=== PATIENT | female | born 1985 | race Asian ===

== ENCOUNTER 2023-08-15 14:05 | Emergency (ER) | payer MEDICAID, OTHER ==
[~2023-08-15] VITALS: Ht 154.9 cm; Wt 67.3 kg
[2023-08-15 15:25] VITALS: BP 128/77; PULSE 114; RESP 18; TEMP 98.8; O2SAT 96
[2023-08-15 17:09] LABS: COVID19 ANTIGEN SOFIA FIA NEGATIVE (NEGATIVE); Rapid Influenza A Negative (Negative)
[2023-08-15 17:12] LABS: Rapid Influenza B Positive (Negative)
[2023-08-15] MEDS ORDERED: OSEL75CA5 PO (17:20)
[2023-08-15] MEDS ORDERED: BENZ100C97 PO (17:20)
== END 2023-08-15 17:36 | disposition home or self-care (01) ==
LOC: ER 14:05
DX: J10.1 Influenza due to other identified influenza virus with other respiratory manifestations (principal); Z20.822 Contact with and (suspected) exposure to COVID-19
CPT/HCPCS: 36415; 87426; 87804